=== PATIENT | female | born 2000 | race Hispanic/Latino ===

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

== ENCOUNTER 2018-06-28 06:36 | Outpatient (CLI) | payer OTHER ==
--- NOTE | 2018-06-28 09:13 | ULT ---
PELVIC ULTRASOUND: HISTORY: Amenorrhea. FINDINGS: Real-time imaging of the pelvis was obtained transabdominally as well as with an endovaginal probe. This shows a uterus measuring 3.6 x 2.7 x 5.5 cm. Endometrium is in the 5-6 mm range. The right and left adnexal are normal in appearance. A small follicle is noted. DOPPLER EVALUATION WITH SPECTRAL ANALYSIS: Normal flow is shown to the adnexa. IMPRESSION: Unremarkable pelvic ultrasound. POS: [facility]
== END 2018-06-28 06:37 | disposition home or self-care (01) ==
LOC: BICULT 06:36
PROVIDERS: ATTEND Advanced Practice Midwife
DX: N91.2 Amenorrhea, unspecified (principal)
CPT/HCPCS: 76856

== ENCOUNTER 2018-07-01 13:52 | Emergency (ER) | payer OTHER, SELFPAY ==
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
[2018-07-01] MEDS ORDERED: Ketorolac Tromethamine 30 MG/ML VIAL ONE (14:53)
== END 2018-07-01 15:28 | disposition home or self-care (01) ==
LOC: ERS 13:52
DX: M25.562 Pain in left knee (principal); F31.9 Bipolar disorder, unspecified; V43.52XA Car driver injured in collision with other type car in traffic accident, initial encounter
CPT/HCPCS: 96372; J1885

== ENCOUNTER 2019-01-05 02:57 | Emergency (ER) | payer MEDICAID, OTHER, SELFPAY ==
[2019-01-05] MEDS ORDERED: Ibuprofen 800 MG TAB ONE (03:52)
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
== END 2019-01-05 04:07 | disposition home or self-care (01) ==
LOC: ERS 02:57
DX: S93.401A Sprain of unspecified ligament of right ankle, initial encounter (principal); W18.49XA Other slipping, tripping and stumbling without falling, initial encounter; Y93.67 Activity, basketball

== ENCOUNTER 2019-01-26 13:40 | Emergency (ER) | payer SELFPAY | END 2019-01-26 14:12 | disposition home or self-care (01) | LOC: ERS 13:40 | DX: M79.671 Pain in right foot (principal); W18.30XA Fall on same level, unspecified, initial encounter | CPT/HCPCS: 99283 ==